=== PATIENT | female | born 1960 | race Two or more races ===

== ENCOUNTER 2019-07-19 16:36 | Emergency (ER) | payer MEDICARE, OTHER ==
[~2019-07-19] VITALS: Ht 162.6 cm; Wt 136.1 kg
[2019-07-19 16:57] VITALS: BP 188/107
[2019-07-19] MEDS ORDERED: cefTRIAXone SOD 1,000 MG VL IM ONE ×2 (17:45)
[2019-07-19] MEDS ORDERED: HYDROcodone-ACET 7.5/325MG TAB PO ONE (17:45)
== END 2019-07-19 18:12 | disposition home or self-care (01) ==
LOC: ER 16:36
DX: K04.7 Periapical abscess without sinus (principal); I10 Essential (primary) hypertension; E11.9 Type 2 diabetes mellitus without complications
CPT/HCPCS: 41800; 96372; 99284; J0696